=== PATIENT | male | born 2005 | race Caucasian/White ===

== ENCOUNTER 2025-03-29 21:38 | Emergency (ER) | payer SELFPAY ==
[2025-03-29 21:46] VITALS: BP 136/103; PULSE 87; RESP 18; TEMP 37; O2SAT 100; BMI 25.1
[2025-03-29 21:54] VITALS: BP 136/103; PULSE 87; RESP 18; TEMP 37
[2025-03-29] MEDS: ERYTHROMYCIN BASE 1 GM OINT...G. OP (22:00)
[2025-03-29] MEDS: TET/DIPHTH/PERT-ADULT 0.5ML SYRINGE 0.5 ML IM (22:01)
[2025-03-29] MEDS: FLUORESCEIN SODIUM 1MG STRIP 1 MG OP (22:01)
[2025-03-29] MEDS: TETRACAINE 0.5% OPTH SOL 15ML OP (22:04)
--- NOTE | 2025-03-29 22:11 | ED_ITS ---
Discharge Plan Disposition Patient Disposition: Home, Self-Care Condition: Good Referrals Follow up/Referrals: Angelo Haney [Primary Care Provider] - See instructions Activity Restrictions/Add. Instructions Additional Instructions/Restrictions: You were evaluated in the emergency department today. As we discussed, you have a residual rust ring of your eye and it is important that you follow-up with an eye doctor over the next 24 to 48 hours for removal. One local eye doctor is Dr. Jace Gonzales whose information is below. Your tetanus shot was updated today. You are provided with erythromycin eye ointment. Please use this 4 times daily until otherwise instructed by an eye doctor. Take Tylenol and ibuprofen as needed for pain. Return to the emergency department right away for new or worsening symptoms. [phone] [place] [address] Clinical Impressions Clinical Impression: Metal foreign body in eye region, Corneal rust ring of left eye Stand Alone Forms Stand Alone Forms: Work/School Release Instructions Patient Instructions: DI for Corneal Foreign Body-Eye Print Language Print Language: Romansh Discharge ED Provider: Liudmila Kumar General Adult HPI General Chief complaint: Eye Problems Stated complaint: AO 03/29/25 1500 FB left eye Time Seen by Provider: 03/29/25 21:48 Mode of Arrival: Ambulatory Source of Information: Patient Description of Symptoms (Recalled from ER Triage Doc. by RN): Pt states while at work he was cutting both metal and wood and at approx 15:00 this date he got something in his eye and is having irritation and rates it 5/10. Pt denies any vision issues. History of Present Illness HPI narrative: This patient is a 19-year-old male presenting to the emergency department for evaluation with concern for foreign body in the left eye. Patient was cutting both metal and wood around 3:00 PM and felt something go in his eye. He noted significant irritation once he got home. He tried to irrigate out his eye with an eyewash station but was unable to remove the foreign body that he can see on his eye. He is unsure when his last tetanus shot was. No other concerns or complaints noted at this time. He is not a contact lens wearer. Related Data Allergies Allergy/AdvReac Type Severity Reaction Status Date / Time No Known Allergies Allergy Verified 03/29/25 21:52 [facility] Disclaimer: The information contained in this section may have been updated after the patient was seen, as this information can be updated by other users. Social History Smoking Status: Current every day smoker alcohol intake: never current occupational status: employed Travel in the last 8 weeks?: None ROS Obtained: Yes All systems reviewed & no additional complaints except as documented Physical Exam General General appearance: alert and in no apparent distress Head Head exam: atraumatic and normocephalic Eye Eye exam: Present PERRL, EOMI and conjunctival injection (Mild, left) Expanded Eye Exam Both Eyes Image: 2 1. Small metallic foreign body ENT ENT exam: Present normal exam, normal oropharynx, mucous membranes moist and normal external ear exam Neck Neck exam: Present normal inspection, full ROM and trachea midline; Absent tenderness Chest Chest inspection: Present normal inspection and symmetric chest wall rise; Absent tenderness Respiratory Respiratory exam: Present normal lung sounds bilaterally; Absent respiratory distress, wheezes, stridor or accessory muscle use Cardiovascular Cardiovascular exam: Present regular rate and normal rhythm Abdominal Exam Abdominal exam: Present soft; Absent distention, tenderness or guarding Extremities Exam Extremities exam: Present normal inspection, full ROM and normal capillary refill; Absent tenderness or edema Back Exam Back exam: Present normal inspection and full ROM; Absent tenderness Neurological Exam Neurological exam: Present alert, oriented X3, CN II-XII intact and normal gait; Absent motor sensory deficit Psychiatric Psychiatric exam: Present normal affect and normal mood Skin Skin exam: Present warm and dry Medical Decision Making Medical Records Medical records reviewed: Yes I reviewed the patient's medical records. Screening: Per USPSTF and CDC recommendations, given the prevalence of disease in our region, it is our hospital?s policy to screen for HIV and viral Hepatitis for all patients aged 18 and over and those with ongoing risk factors. Qasim Inquiry Pt receiving controlled substance: No Vital Signs: 03/29/25 21:46 03/29/25 21:54 Temperature 98.6 F 98.6 F Temperature Source Oral Oral Pulse Rate 87 Pulse Rate [Left] 87 Respiratory Rate 18 18 Blood Pressure 136/103 H Blood Pressure [Right Arm] 136/103 H Blood Pressure Mean [Right Arm] 114 Blood Pressure Source Automatic Cuff Blood Pressure Source [Right Arm] Automatic Cuff Blood Pressure Position Sitting 02 Sat by Pulse Oximetry 100 Oxygen Delivery Method Room Air Lab Data Lab results reviewed: Yes I reviewed the patient's lab results. Orders (Tests/Meds): ED MEDICATIONS Discontinued Medications Generic Name Dose Route Start Last Admin Trade Name Danny PRN Reason Stop Dose Admin Erythromycin 1 gm 03/29/25 21:49 03/29/25 22:00 Erythromycin Base 1 Gm Oint...G. OP 03/29/25 21:50 1 gm ONCE ONE Administration Fluorescein Sodium 1 mg 03/29/25 21:48 03/29/25 22:01 Fluorescein Sodium 1mg Strip OP 03/29/25 21:49 1 mg ONCE ONE Administration Tetanus/Reduced Diphtheria/Acell Pertussis 0.5 ml 03/29/25 21:48 03/29/25 22:01 Tet/Diphth/Pert-Adult 0.5ml Syringe IM 03/29/25 21:49 0.5 ml .ONCE ONE Administration Tetracaine HCl 0 ml 03/29/25 21:48 03/29/25 22:04 Tetracaine 0.5% Opth Daniela 15ml OP 03/29/25 21:49 15 ml ONCE ONE Administration Medical Decision Narrative: In summary, this patient is a 19-year-old male presenting to the Emergency Department for evaluation of foreign body in the left eye, not sure if it is metal or wood Differential diagnoses considered include but are not limited to metallic foreign body, wooden foreign body, corneal abrasion, corneal ulceration, globe injury. Ruling out the most morbid conditions drove assessment. On exam, the patient is sitting upright in no acute distress with a small metallic foreign body in his left eye. Otherwise, exam is very reassuring. After informed consent was obtained, patient consented to foreign body removal of the left eye with an 18-gauge needle. This was performed successfully, however he did have residual rust ring. I was unable to remove the rust ring despite attempt it is not directly overlying his visual field, so I feel he is appropriate for discharge with eye doctor follow-up over the next 24 to 48 hours.. Tdap booster was administered. I performed fluorescein staining of the left eye after removal of foreign body with negative Benjie sign and only localized fluorescein uptake. He was given erythromycin ophthalmic ointment. He is agreeable with discharge home with follow-up with eye doctor over the next 24 to 48 hours for his residual rust ring. He was given very strict return precautions as well as instruction for supportive management was discharged all questions were answered. Procedure: Foreign body removal of the left eye. Informed consent was obtained. Eye was anesthetized with tetracaine drops. Foreign body was then removed with 18-gauge needle. Patient provided this well with no complications. Fluorescein staining afterward demonstrated only localized fluorescein uptake with negative Benjie sign. Patient had residual rust ring but foreign body was completely removed on assessment. Procedures Risk/Benefits of Procedure(s) Were Explained: Yes Critical Care Critical Care Time Critical Care Time: No
[2025-03-29 22:15] VITALS: BP 138/96; PULSE 82; RESP 16; TEMP 36.6; O2SAT 100
== END 2025-03-29 22:19 | disposition home or self-care (01) ==
PROVIDERS: Emergency Provider Emergency Medicine; PCP Internal Medicine
DX: T15.02XA Foreign body in cornea, left eye, initial encounter (principal); H18.892 Other specified disorders of cornea, left eye; W45.8XXA Other foreign body or object entering through skin, initial encounter; Z23 Encounter for immunization
CPT/HCPCS: 65220; 90471; 90715; 99283